=== PATIENT | male | born 1955 | race Caucasian/White ===

== ENCOUNTER 2017-02-03 14:02 | Emergency (ER) | payer OTHER ==
[~2017-02-03] VITALS: Ht 175.3 cm; Wt 74.8 kg
--- NOTE | 2017-02-03 14:30 | NUR ---
PT BIB RA WITH NO COMPLAINTS, CUSTODY OF MALL LOSS PREVENTION WITH HX OF CHRONIC NECK AND BACK PAIN. MONITOR IN PLACED. VSS. AWAITING MD ORDER
[2017-02-03] MEDS ORDERED: IBUPROFEN 400 MG TABLET ONE (14:43)
[2017-02-03] MEDS ORDERED: IBUPROFEN 400 MG TABLET PO ONE (15:00)
--- NOTE | 2017-02-03 15:16 | NUR ---
PT BP ELEVATED CONTINUE TO MONITOR PER MD
[2017-02-03 15:40] VITALS: BP 160/90
== END 2017-02-03 15:43 ==
LOC: ER 14:04
DX: I10 Essential (primary) hypertension (principal); G89.29 Other chronic pain; R51 Headache; K42.0 Umbilical hernia with obstruction, without gangrene
CPT/HCPCS: 70450; 99284; A4606; Z7610